=== PATIENT | female | born 1975 | race Hispanic/Latino ===

== ENCOUNTER 2019-02-10 21:41 | Emergency (ER) | payer OTHER ==
--- NOTE | 2019-02-10 21:49 | Emergency Department Report ---
Blank Doc - Documentation Documentation: this is a 43-year-old female that presents with nausea vomiting and abdominal pain. This initial assessment/diagnostic orders/clinical plan/treatment(s) is/are subject to change based on patient's health status, clinical progression and re- assessment by fellow clinical providers in the ED. Further treatment and workup at subsequent clinical providers discretion. Patient/guardians urged not to elope from the ED as their condition may be serious if not clinically assessed and managed. Initial orders include: 1- Patient sent to [facility] for further evaluation and treatment 2- labs 3- UA
[2019-02-10 22:03] LABS: Basophils # (Auto) 0.1 K/mm3 (0.0-0.1); Basophils % (Auto) 0.9 % (0.0-1.8); Eosinophils # (Auto) 0.3 K/mm3 (0.0-0.4); Eosinophils % (Auto) 3.8 % (0.0-4.3); Hemoglobin 13.2 gm/dl (10.1-14.3); Lymphocytes # (Auto) 2.4 K/mm3 (1.2-5.4); Lymphocytes % (Auto) 29.9 % (13.4-35.0); Mean Corpuscular HGB Conc 35 % (30-34); Mean Corpuscular Volume 90 fl (79-97); Monocytes # (Auto) 0.6 K/mm3 (0.0-0.8); Platelet Count 273 K/mm3 (140-440); Red Blood Count 4.24 M/mm3 (3.65-5.03); Red Cell Distribution Width 12.5 % (13.2-15.2)
[2019-02-10 22:09] LABS: Bacteria,Urine 1+ /HPF (Negative); Bilirubin,Urine NEG (Negative); Blood,Urine NEG (Negative); Color,Urine Yellow (Yellow); Protein,Urine <15 mg/dL mg/dL (Negative); Urobilinogen,Urine < 2.0 mg/dL (<2.0); WBC,Urine < 1.0 /HPF (0.0-6.0)
[2019-02-10 22:20] LABS: Alanine Aminotransferase 17 units/L (7-56); BUN/Creatinine Ratio 18; Blood Urea Nitrogen 11 mg/dL (7-17); Calcium 9.5 mg/dL (8.4-10.2); Hemolysis Index 7
[2019-02-11] MEDS ORDERED: ZOFRAN IV ONE (01:24)
[2019-02-11] MEDS ORDERED: MORPHINE IV ONE (01:24)
--- NOTE | 2019-02-11 05:31 | Cat Scan Report ---
CT abdomen pelvis w con INDICATION / CLINICAL INFORMATION: abdominal pain. TECHNIQUE: Axial CT imaging of the abdomen and pelvis was performed with IV contrast only. Coronal and sagittal reformatted imaging obtained and reviewed. All CT scans at this location are performed using CT dose reduction for ALARA by means of automated exposure control. COMPARISON: The appearance of the left ovary suggests recent ovulation. CT pelvis with contrast demonstrates normal appearance the appendix. There is a 2.7 cm cyst within th e left ovary. The appearance is suggestion of a postovulatory cyst. Uterus is mildly enlarged. The re mainder of the pelvis is normal. No pelvic mass, free fluid, or focal inflammatory change noted. GI t ract is grossly normal. No acute significant skeletal abnormality. Lung bases are clear. IMPRESSION: 1. No acute finding within the abdomen or pelvis. 2. Probable recent left ovarian Signer Name: Sonam Evans MD Signed: 02/11/2019 4:27 AM Workstation Name: [id number]
--- NOTE | 2019-02-11 06:06 | Emergency Department Report ---
ED Abdominal Pain HPI - General Chief Complaint: Abdominal Pain Stated Complaint: LOWER ABD PAIN LEFT SIDE NV SWEATING Time Seen by Provider: 02/10/19 21:48 Source: patient Mode of arrival: Ambulatory Limitations: No Limitations - History of Present Illness Initial Comments: Patient is a 43-year-old white female with no past medical history presents to the ED with complaint of acute onset persistent severe left lower quadrant abdominal pain with nausea and vomiting for the last few days. Patient states that she's been taking [id number] pain medications and no relief. Patient denies dizziness, diarrhea, vaginal bleeding, dysuria, urinary frequency and urgency, no back pain, vaginal discharge, dyspareunia, dizziness or chest pain and shortness of breath. MD Complaint: abdominal pain, other (nausea and vomiting) -: Sudden, days(s) (3) Location: LLQ, suprapubic Radiation: LLQ, suprapubic Migration to: no migration Severity: moderate Severity scale (0 -10): 6 Quality: cramping, aching, sharp Consistency: constant Improves With: nothing Worsens With: nothing Associated Symptoms: denies other symptoms, nausea, vomiting. denies: diarrhea, fever, chills, hematemesis, hematochezia, melena, hematuria, anorexia Treatments Prior to Arrival: NSAIDs - Related Data LMP Date: 01/26/19 Previous Rx's Medication Instructions Recorded Last Taken Type Ketorolac [Toradol] 10 mg PO Q8H PRN #20 tablet 02/11/19 Unknown Rx Ondansetron [Zofran Odt] 4 mg PO Q6HR PRN #20 tab.rapdis 02/11/19 Unknown Rx traMADol [Ultram] 50 mg PO Q6HR PRN #15 tablet 02/11/19 Unknown Rx Allergies Allergy/AdvReac Type Severity Reaction Status Date / Time cephalexin [From Keflex] Allergy Unknown Verified 02/10/19 21:45 ED Review of Systems ROS: Stated complaint: LOWER ABD PAIN LEFT SIDE NV SWEATING Other details as noted in HPI Constitutional: denies: chills, fever Eyes: denies: eye pain, eye discharge, vision change ENT: denies: ear pain, throat pain Respiratory: denies: cough, shortness of breath, wheezing Cardiovascular: denies: chest pain, palpitations Endocrine: no symptoms reported Gastrointestinal: abdominal pain, nausea, vomiting. denies: diarrhea Genitourinary: denies: urgency, dysuria, discharge Musculoskeletal: denies: back pain, joint swelling, arthralgia Skin: denies: rash, lesions Neurological: denies: headache, weakness, paresthesias Psychiatric: denies: anxiety, depression Hematological/Lymphatic: denies: easy bleeding, easy bruising ED Past Medical Hx - Past Medical History Previous Medical History?: Yes Hx Diabetes: Yes Hx Asthma: Yes (bronchitis) - Surgical History Past Surgical History?: No - Social History Smoking Status: Former Smoker Substance Use Type: Alcohol - Medications Home Medications: Home Medications Medication Instructions Recorded Confirmed Last Taken Type Ketorolac [Toradol] 10 mg PO Q8H PRN #20 tablet 02/11/19 Unknown Rx Ondansetron [Zofran Odt] 4 mg PO Q6HR PRN #20 tab.rapdis 02/11/19 Unknown Rx traMADol [Ultram] 50 mg PO Q6HR PRN #15 tablet 02/11/19 Unknown Rx ED Physical Exam - General Limitations: No Limitations General appearance: alert, in no apparent distress - Head Head exam: Present: atraumatic, normocephalic, normal inspection - Eye Eye exam: Present: normal appearance, PERRL, EOMI - ENT ENT exam: Present: normal exam, normal orophraynx, mucous membranes moist, TM's normal bilaterally, normal external ear exam - Neck Neck exam: Present: normal inspection, full ROM - Respiratory Respiratory exam: Present: normal lung sounds bilaterally. Absent: respiratory distress, wheezes, rales, stridor, chest wall tenderness, accessory muscle use, decreased breath sounds - Cardiovascular Cardiovascular Exam: Present: regular rate, normal rhythm, normal heart sounds. Absent: systolic murmur, diastolic murmur, rubs, gallop - GI/Abdominal GI/Abdominal exam: Present: soft, tenderness (palpable left lower quadrant tenderness, no guarding or rebound), normal bowel sounds. Absent: hyperactive bowel sounds, hypoactive bowel sounds, organomegaly - Rectal Rectal exam: Present: deferred - Extremities Exam Extremities exam: Present: normal inspection, full ROM, normal capillary refill - Back Exam Back exam: Present: normal inspection, full ROM. Absent: tenderness, CVA tenderness (L), muscle spasm, paraspinal tenderness - Neurological Exam Neurological exam: Present: alert, oriented X3, CN II-XII intact, normal gait, reflexes normal - Psychiatric Psychiatric exam: Present: normal affect, normal mood - Skin Skin exam: Present: warm, dry, intact, normal color. Absent: rash ED Course Vital Signs 02/10/19 21:46 Temperature 98.6 F Pulse Rate 88 Respiratory 18 Rate Blood Pressure 146/77 O2 Sat by Pulse 96 Oximetry - Reevaluation(s) Reevaluation #1: 02/11/19 06:12 Patient is alert and oriented 3 and is not in any distress and normal vital signs. Patient was treated for pain in the ED and lab test results were reviewed and are all unremarkable. Abdomen pelvis CT scan with contrast shows a 2.7 cm cyst within the left ovary. No other acute abdominal findings were noted. On reevaluation, the patient's pain is well controlled with medications, patient resting and sleeping comfortably in the room in no acute distress. Patient is sent home on pain medications and advised to follow-up with her [facility] physician in 5-7 days for reevaluation. Patient was otherwise return to the ED immediately if symptoms get worse. ED Medical Decision Making - Lab Data Result diagrams: 02/10/19 21:50 02/10/19 21:50 - Radiology Data Radiology results: report reviewed, image reviewed Abdomen pelvis CT scan w/contrast: Shows a 2.7 cm left ovarian cyst. No other abdominal or pelvis pathology noted. - Medical Decision Making Patient is alert and oriented 3 and is not in any distress and normal vital signs. Patient was treated for pain in the ED and lab test results were reviewed and are all unremarkable. Abdomen pelvis CT scan with contrast shows a 2.7 cm cyst within the left ovary. No other acute abdominal findings were noted. On reevaluation, the patient's pain is well controlled with medications, patient resting and sleeping comfortably in the room in no acute distress. Patient is sent home on pain medications and advised to follow-up with her [facility] physician in 5-7 days for reevaluation. Patient was otherwise return to the ED immediately if symptoms get worse - Differential Diagnosis Acute colitis; Acuet appendicitis; Ovarian cyst; Acute PID Critical care attestation.: If time is entered above; I have spent that time in minutes in the direct care of this critically ill patient, excluding procedure time. ED Disposition Clinical Impression: Cyst of left ovary, Nausea and vomiting in adult patient Abdominal pain Qualifiers: Abdominal location: left lower quadrant Qualified Code(s): R10.32 - Left lower quadrant pain Disposition: TO HOME OR SELFCARE Is pt being admited?: No Does the pt Need Aspirin: No Condition: Stable Instructions: Abdominal Pain (ED), Acute Nausea and Vomiting (ED), Ovarian Cyst (ED) Additional Instructions: Medications with food, drink plenty of fluids and follow up with your [facility] physician in 5-7 days for reevaluation. Return to the ED immediately if symptoms get worse. Prescriptions: Ketorolac [Toradol] 10 mg PO Q8H PRN #20 tablet PRN Reason: Pain traMADol [Ultram] 50 mg PO Q6HR PRN #15 tablet PRN Reason: Pain Ondansetron [Zofran Odt] 4 mg PO Q6HR PRN #20 tab.rapdis PRN Reason: Nausea Referrals: ALFRED HOLDER MD [Referring] - 3-5 Days Time of Disposition: 06:04 Print Language: BELARUSIAN
[2019-02-11 06:37] VITALS: BP 124/84
== END 2019-02-11 06:38 | disposition home or self-care (01) ==
LOC: ED 21:41
DX: N83.202 Unspecified ovarian cyst, left side (principal); R11.2 Nausea with vomiting, unspecified; E11.9 Type 2 diabetes mellitus without complications; J45.909 Unspecified asthma, uncomplicated; Z79.899 Other long term (current) drug therapy; Z88.5 Allergy status to narcotic agent; Z87.891 Personal history of nicotine dependence
CPT/HCPCS: 36415; 74177; 80053; 81001; 83690; 84703; 85025; 96374; 96375; 99284; J2270; J2405; Q9967